=== PATIENT | female | born 1965 | race Caucasian/White ===

== ENCOUNTER 2019-10-02 08:17 | Outpatient (CLI) | payer OTHER ==
[~2019-10-02 08:17] MED LIST: ASHWAGANDA PO; FERR325T18 PO; HYDR-3240 PO; IBUP200T49 PO; MACA500C PO; PROG100C16 PO; [UNRECOGNIZED DRUG - OTHER] PO; [UNRECOGNIZED DRUG - REMARK] PO
[2019-10-02] MEDS ORDERED: MAGNESIUM POTASSIUM PO (08:54)
[2019-10-02] MEDS ORDERED: BIOT25005 PO (08:54)
[2019-10-02] MEDS ORDERED: CYAN500T18 PO (08:54)
[2019-10-02] MEDS ORDERED: ACET325T14 PO (08:54)
[2019-10-02] MEDS ORDERED: TRIPHALA PO (08:54)
[2019-10-02] MEDS ORDERED: CITRACAL PO (08:54)
[2019-10-02] MEDS ORDERED: DOXY25TA18 PO (08:54)
[2019-10-02] MEDS ORDERED: NAPR220C2 PO (08:54)
[2019-10-02] MEDS ORDERED: ASCO100019 PO (08:54)
[2019-10-02] MEDS ORDERED: CHOL500015 PO (08:54)
[2019-10-02 09:09] LABS: BASOPHILS # (AUTO) 0.04 x10^3/uL (0-0.1); BASOPHILS % (AUTO) 1 % (0-1); EOSINOPHILS # (AUTO) 0.11 x10^3/uL (0-0.4); EOSINOPHILS % (AUTO) 2 % (1-7); LYMPHOCYTES # (AUTO) 1.87 x10^3/uL (1-3.4); LYMPHOCYTES % (AUTO) 33 % (22-44); MD NO; MEAN CORPUSCULAR HEMOGLOBIN 30.9 pg (27.0-34.8); MEAN CORPUSCULAR HGB CONC 33.1 g/dL (32.4-35.8); MEAN CORPUSCULAR VOLUME 93.3 fL (80-100); MEAN PLATELET VOLUME 6.6 fL (7.4-10.4); MONOCYTES # (AUTO) 0.35 x10^3/uL (0.2-0.8); MONOCYTES % (AUTO) 6 % (2-9); NEUTROPHILS # (AUTO) 3.32 x10^3/uL (1.8-6.8); NEUTROPHILS % (AUTO) 58 % (42-75); PLATELET COUNT 283 x10^3/uL (130-400); RED BLOOD COUNT 4.41 x10^6/uL (3.82-5.3)
[2019-10-02 09:19] LABS: INTERNATIONAL NORMALIZED RATIO 0.95 (0.93-1.1)
[2019-10-02 09:21] LABS: ALANINE AMINOTRANSFERASE 19 U/L (12-78); ALBUMIN 3.7 g/dL (3.4-5.0); ANION GAP 5 mmol/L (5-15); CALCIUM 8.5 mg/dL (8.5-10.1); CHLORIDE 112 mmol/L (98-107); CREATININE 0.75 mg/dL (0.55-1.02)
[2019-10-02 09:23] LABS: ALKALINE PHOSPHATASE 47 U/L (45-117); BILIRUBIN,TOTAL 0.4 mg/dL (0.2-1.0); TOTAL PROTEIN 6.8 g/dL (6.4-8.2)
== END 2019-10-02 23:59 | disposition home or self-care (01) ==
LOC: STAR 08:17
PROVIDERS: ATTEND Specialist
DX: D07.1 Carcinoma in situ of vulva (principal); F12.10 Cannabis abuse, uncomplicated; Z87.891 Personal history of nicotine dependence; Z83.3 Family history of diabetes mellitus; Z82.49 Family history of ischemic heart disease and other diseases of the circulatory system
CPT/HCPCS: 36415; 80053; 85025; 85610; 85730

== ENCOUNTER 2019-10-08 05:22 | Day surgery (SDC) | payer OTHER ==
[~2019-10-08] VITALS: Ht 165.1 cm; Wt 72.3 kg
[~2019-10-08 05:22] MED LIST changes: +ACET325T14 PO; +ASCO100019 PO; +BIOT25005 PO; +CHOL500015 PO; +CITRACAL PO; +CYAN500T18 PO; +DOXY25TA18 PO; +MAGNESIUM POTASSIUM PO; +NAPR220C2 PO; +TRIPHALA PO
[2019-10-08] MEDS ORDERED: LACTATED RINGERS 1,000 ML IV SCH (06:12)
[2019-10-08 06:15] VITALS: BP 121/83
[2019-10-08] MEDS ORDERED: BUPIVACAINE/PF 0.25% ONE (06:39)
[2019-10-08] MEDS ORDERED: EPINEPHRINE 1 MG/ML, 1ML ONE (06:39)
[2019-10-08] MEDS ORDERED: FENTANYL PF 250 MCG/5ML ONE (07:18)
[2019-10-08] MEDS ORDERED: MIDAZOLAM 1 MG/ML, 2ML ONE (07:18)
[2019-10-08] MEDS ORDERED: APREPITANT 40 MG CAPSULE ONE ×2 (07:29)
[2019-10-08] MEDS ORDERED: GLYCOPYRROLATE 0.2MG/1ML, 5ML ONE (07:33)
[2019-10-08] MEDS ORDERED: DEXMEDETOMIDINE 200 MCG/2 ML ONE (07:33)
[2019-10-08] MEDS ORDERED: KETAMINE 10 MG/ML, 20ML ONE ×2 (07:33)
[2019-10-08] MEDS ORDERED: KETOROLAC 30 MG/1 ML ONE (07:56)
[2019-10-08] MEDS ORDERED: CEFAZOLIN 1,000 MG ONE (07:56)
[2019-10-08] MEDS ORDERED: ROCURONIUM 10MG/ML,5ML ONE (07:56)
[2019-10-08] MEDS ORDERED: SUGAMMADEX 200 MG/2 ML IVPush ONE (07:56)
[2019-10-08] MEDS ORDERED: LIDOCAINE GEL 2%, 5ML ONE (07:56)
[2019-10-08] MEDS ORDERED: ONDANSETRON 2MG/ML, 2ML ONE (07:56)
[2019-10-08] MEDS ORDERED: PROPOFOL 10 MG/ML, 20ML ONE (07:56)
[2019-10-08] MEDS ORDERED: DEXAMETHASONE 4 MG/ML, 1ML ONE (07:56)
[2019-10-08] MEDS ORDERED: WATER-INJECTION,STERILE 10 ML IV ONE (07:56)
[2019-10-08] MEDS ORDERED: HALOPERIDOL 5 MG/ML IV PRN (08:30)
[2019-10-08] MEDS ORDERED: OXYcodone 5 MG/5 ML ORAL.SOL UDC PO PRN (08:30)
[2019-10-08] MEDS ORDERED: hydrALAzine 20 MG/ML, 1ML IV PRN (08:30)
[2019-10-08] MEDS ORDERED: FENTANYL PF 100 MCG/2ML IV PRN (08:30)
[2019-10-08] MEDS ORDERED: MEPERIDINE/PF 25MG/ML,1ML IVPush PRN (08:30)
[2019-10-08] MEDS ORDERED: PROMETHAZINE 25 MG/ML, 1ML IV PRN (08:30)
[2019-10-08] MEDS ORDERED: HYDROmorphone 2 MG/ML, 1ML IVPush PRN (08:30)
[2019-10-08] MEDS ORDERED: ACETAMINOPHEN 325 MG TABLET PO PRN (08:30)
[2019-10-08] MEDS ORDERED: LABETALOL 5MG/ML, 20ML IV PRN (08:30)
[2019-10-08] MEDS ORDERED: MEPERIDINE/PF 50 MG/ML ONE ×2 (09:43→09:51)
== END 2019-10-08 10:52 | disposition home or self-care (01) ==
LOC: OUT 05:22
PROVIDERS: ATTEND Specialist
DX: D07.1 Carcinoma in situ of vulva (principal); Z72.89 Other problems related to lifestyle; Z79.899 Other long term (current) drug therapy; Z87.891 Personal history of nicotine dependence; Z90.49 Acquired absence of other specified parts of digestive tract; Z90.710 Acquired absence of both cervix and uterus; Z98.890 Other specified postprocedural states; Z82.49 Family history of ischemic heart disease and other diseases of the circulatory system; Z83.3 Family history of diabetes mellitus
CPT/HCPCS: 11622; 12041; 88305; J0171; J0690; J1100; J1885; J2175; J2250; J2405; J2704; J3010; J3490; J7120; J8501